=== PATIENT | male | born 1990 | race Caucasian/White ===

== ENCOUNTER 2023-06-29 16:13 | Emergency (ER) | payer OTHER ==
[~2023-06-29] VITALS: Ht 167.6 cm; Wt 63.0 kg
[2023-06-29 16:46] VITALS: BP 110/60; TEMP 98.1
[2023-06-29 19:00] VITALS: O2SAT 99
== END 2023-06-29 19:01 | disposition home or self-care (01) ==
LOC: ER 16:20
DX: H11.31 Conjunctival hemorrhage, right eye (principal)